=== PATIENT | female | born 1945 | race Native Hawaiian/Other Pacific Islander ===

== ENCOUNTER 2017-03-09 18:24 | Observation (INO) | payer MEDICARE ==
[~2017-03-09] VITALS: Ht 157.5 cm; Wt 63.0 kg
[~2017-03-09 18:24] MED LIST: ASPI81CH CHEW; CALC600T25 PO; CHOL1TAB42 PO; LEVO25TA4 PO; MULTCAP3 PO; ZOLE5P IV
[2017-03-09 18:26] VITALS: BP 163/76; PULSE 107; RESP 18; TEMP 100.8; O2SAT 98
[2017-03-09 19:09] VITALS: BP 138/67; PULSE 92; TEMP 98.1; O2SAT 98
--- NOTE | 2017-03-09 19:28 | PD ---
HPI Chief Complaint: Cold / Flu Symptoms Time Seen by Provider: 19:20 Travel History International Travel<30 days: No Contact w/Intl Traveler<30days: No Traveled to known affect area: No History of Present Illness HPI The patient is a 71 year old female who presents to the [facility] emergency department with a history of urinary incontinence and urinary urgency that began on Wednesday. She denies having any dysuria. She has had similar symptoms in the past related to urinary tract infections. She started on Cipro that was provided by her and has been on the medication for 3 day. She has had fatigue and a fever with a tmax of 101. Today she began to have n/v. She has also had diarrhea 2-3 x per day since starting the ciprofloxacin. Her stool is dark brown and watery without mucus. She denies having any blood in her stool. She reports having body aches. She reports that she's had a cough mainly before she begins to gag and vomit. Otherwise, she denies having any congestion. On review of systems, the patient denies any neck pain, chest pain , shortness of breath, abdominal pain, or neurologic symptoms. PCP: Edwin Zeng. [facility] Past Medical History Narrative Medical The patient's past medical history is significant for hypothyroidism, osteoporosis. Cancer: No Cardiovascular Problems: No Endocrine: Yes Genitourinary: No Immune Disorder: No Musculoskeletal: Yes Neurologic: No Psychiatric: No Reproductive: No Respiratory: No Thyroid Disease: Yes ?: Not Past Surgical History Narrative Surgical The patient's past surgical history is significant for right wrist orif, left wrist orif. Other Surgery: Yes Social History Alcohol Use: No Tobacco Use: No Substance Use: No Allergies-Medications (Allergen,Severity, Reaction): Coded Allergies: No Known Allergies (Unverified , 03/09/17) Reported Meds & Prescriptions Reported Meds & Active Scripts Active Reported Reclast Inj (Zoledronic Acid) 5 Mg/100 Ml Inj 5 Mg IV Q365D Aspirin 81 Mg Chew 81 Mg CHEW DAILY Vitamin D-3 (Cholecalciferol) 2,000 Unit Tab 1 Cap PO EVERY OTHER DAY Calcium (Calcium Carbonate) 600 Mg Tab 1 Tab PO BID Multivitamins (Multiple Vitamin) 1 Cap Cap 1 Tab PO DAILY Levothyroxine (Levothyroxine Sodium) 25 Mcg Tab 25 Mcg PO DAILY Review of Systems Except as stated in HPI: all other systems reviewed are Neg General / Constitutional: Positive: Fever, Chills Eyes: No: Visual changes HENT: No: Headaches, Congestion Cardiovascular: No: Chest Pain or Discomfort Respiratory: Positive: Cough, No: Shortness of Breath Gastrointestinal: No: Abdominal Pain Genitourinary: Positive: Urgency, Frequency, Incontinence, No: Dysuria Musculoskeletal: Positive: Myalgias, Pain Skin: No Rash Neurologic: Positive: Weakness (generalized), No: Focal Abnormalities, Change in Mentation, Slurred Speech, Sensory Disturbance Psychiatric: No: Depression Endocrine: No: Polydipsia Hematologic/Lymphatic: No: Easy Bruising Physical Exam Narrative General: The patient is a well-developed well-nourished female in no acute distress. Head and Neck exam: Head is normocephalic atraumatic. Eyes: EOMI, pupils are equal round and reactive to light. Nose: Midline septum with pink mucous membranes Mouth: Dentition unremarkable. Moist mucus membranes. Posterior oropharynx is not erythematous. No tonsillar hypertrophy. Uvula midline. Airway patent. Neck: No palpable lymphadenopathy. No nuchal rigidity. No thyromegaly. Cardiovascular: Sinus tachycardia in the low 100 without murmurs, gallops, or rubs. No pulse deficit to the extremities and simultaneous auscultation and palpation of her radial artery. Lungs: Clear to auscultation bilaterally. No wheezes, rhonchi, or rales. Abdomen: Soft, without tenderness to palpation in all 4 quadrants of the abdomen. No guarding, rebound, or rigidity. Normal bowel sounds are audible. No tenderness on palpation of McBurney's point. Negative Pisano's sign. Extremities: No clubbing, cyanosis, or edema. 2+ pulses in all 4 extremities. No calf tenderness on palpation. Back: No spinous process tenderness to palpation. No costovertebral angle tenderness to palpation. Neurologic Exam: Grossly nonfocal. Skin Exam: No rash noted. Intact skin that is warm and dry. Data Data Last Documented VS Vital Signs Date Time Temp Pulse Resp B/P (MAP) Pulse Ox O2 Delivery O2 Flow Rate FiO2 03/09/17 21:00 98.1 98 18 132/75 (94) 99 Room Air Orders Orders Electrocardiogram (03/09/17 19:21) Complete Blood Count With Diff (03/09/17 19:21) Comprehensive Metabolic Panel (03/09/17 19:21) Prothrombin Time / Inr (Pt) (03/09/17 19:21) Act Partial Throm Time (Ptt) (03/09/17 19:21) Blood Culture (03/09/17 19:21) C-Reactive Protein (Crp) (03/09/17 19:21) Lipase (03/09/17 19:21) Urinalysis - C+S If Indicated (03/09/17:21) Magnesium (Mg) (03/09/17 19:21) Thyroid Stimulating Hormone (03/09/17 19:21) Chest, Single Ap (03/09/17:21) Iv Access Insert/Monitor (03/09/17:) Ecg Monitoring (03/09/17:) Oximetry (03/09/17:) Lactic Acid Sepsis Protocol (03/09/17 19:21) Acetaminophen (Tylenol) (03/09/17 19:30) Sodium Chlorid 0.9% 500 Ml Inj (Ns 500 M (03/09/17 19:30) Piperacil-Tazo 3.375 Gm Premix (Zosyn 3. (03/09/17 19:30) Vancomycin Inj (Vancomycin Inj) (03/09/17 19:30) Admit Order (Ed Use Only) (03/09/17 21:29) Labs Laboratory Tests Test 03/09/17 20:00 03/09/17 20:10 White Blood Count 8.1 TH/MM3 Red Blood Count 3.77 MIL/MM3 Hemoglobin 11.3 GM/DL Hematocrit 34.1 % Mean Corpuscular Volume 90.4 FL Mean Corpuscular Hemoglobin 29.9 PG Mean Corpuscular Hemoglobin Concent 33.1 % Red Cell Distribution Width 13.3 % Platelet Count 179 TH/MM3 Mean Platelet Volume 7.7 FL Neutrophils (%) (Auto) 88.2 % Lymphocytes (%) (Auto) 2.3 % Monocytes (%) (Auto) 9.0 % Eosinophils (%) (Auto) 0.2 % Basophils (%) (Auto) 0.3 % Neutrophils # (Auto) 7.1 TH/MM3 Lymphocytes # (Auto) 0.2 TH/MM3 Monocytes # (Auto) 0.7 TH/MM3 Eosinophils # (Auto) 0.0 TH/MM3 Basophils # (Auto) 0.0 TH/MM3 CBC Comment DIFF FINAL Differential Comment Prothrombin Time 10.9 SEC Prothromb Time International Ratio 1.0 RATIO Activated Partial Thromboplast Time 33.3 SEC Blood Urea Nitrogen 11 MG/DL Creatinine 0.71 MG/DL Random Glucose 112 MG/DL Total Protein 7.0 GM/DL Albumin 3.2 GM/DL Calcium Level 9.2 MG/DL Magnesium Level 1.8 MG/DL Alkaline Phosphatase 47 U/L Aspartate Amino Transf (AST/SGOT) 28 U/L Alanine Aminotransferase (ALT/SGPT) 24 U/L Total Bilirubin 0.5 MG/DL Sodium Level 136 MEQ/L Potassium Level 4.0 MEQ/L Chloride Level 104 MEQ/L Carbon Dioxide Level 25.4 MEQ/L Anion Gap 7 MEQ/L Estimat Glomerular Filtration Rate 81 ML/MIN Lactic Acid Level 1.1 mmol/L C-Reactive Protein 15.00 MG/DL Lipase 88 U/L Thyroid Stimulating Hormone 3rd Gen 1.980 uIU/ML Urine Color LIGHT-YELLOW Urine Turbidity CLEAR Urine pH 6.0 Urine Specific [place] 1.006 Urine Protein TRACE mg/dL Urine Glucose (UA) NEG mg/dL Urine Ketones NEG mg/dL Urine Occult Blood MOD Urine Nitrite NEG Urine Bilirubin NEG Urine Urobilinogen LESS THAN 2.0 MG/DL Urine Leukocyte Esterase NEG Urine RBC 6 /hpf Urine WBC 1 /hpf Urine Bacteria RARE /hpf Microscopic Urinalysis Comment CULT NOT INDICATED MDM Medical Decision Making Medical Screen Exam Complete: Yes Emergency Medical Condition: Yes Medical Record Reviewed: Yes Interpretation(s) Last Impressions Chest X-Ray 03/09/171920 Signed Impressions: Service Date/Time: Thursday, March 09, 2017 19:50 - CONCLUSION: 1. Cardiomegaly with minimal basilar atelectasis. No effusion. Kam Clay MD Differential Diagnosis Differential diagnosis in this patient includes pyelonephritis, versus viral syndrome, versus pneumonia, versus sepsis of undetermined origin. Narrative Course During the course of the patients emergency department visit, the patients history, examination, and differential diagnosis were reviewed with the patient. The patient had IV access obtained and blood work sent for analysis. The patient was placed on a cardiac cath lab manager with oximetry and blood pressure monitoring. An ECG was done on arrival. The patient's ECG reveals a heart rate of 92 with occasional supraventricular premature complexes, QRS duration is 97 ms, QTC 389 ms, and incomplete right bundle branch block is noted, T waves are inverted in lead 3, V1. No acute ST segment elevation is noted. The patient was initially provided Zosyn and vancomycin as broad-spectrum antibiotic due to a concern for possible sepsis in spite of treatment with ciprofloxacin. The patient was given normal saline a 500 mL bolus times one. Acetaminophen 650 by mouth 1 for fever. The patients laboratory studies were reviewed and remarkable for a white count of 8.1, hemoglobin 11.3, platelets 179 with neutrophils 88.2, leukocytes 2.3, monocytes 9.0, CMP is remarkable for glucose of 112, lactic acid 1.1, C- reactive protein is 15, albumin 3.2, lipase 88, TSH 1.98, PT 10.9, PTT 33.3, urinalysis shows moderate occult blood, 6 RBCs, 1 WBC, rare bacteria. Culture was not indicated, however as she has been on ciprofloxacin I did go ahead and order a urine culture to be sent. Radiology studies were reviewed and remarkable for a chest x-ray that shows cardiomegaly with minimal [place] atelectasis, no effusions. The patients results were discussed with the patient, including the plan of care. I explained that further testing and/ or monitoring is indicated based on the patients history, examination, and/ or laboratory findings. Therefore, I recommended admission for additional evaluation. The patient expressed understanding and was agreeable with this plan. The patient was admitted to the hospital in stable condition and sent to a bed under the care of the [facility]. Sepsis Criteria SIRS Criteria (2 or more): Heart rate over 90 Physician Communication Physician Communication The patient's case was discussed with Drew Yoon. He did agree to admit the patient for further evaluation and treatment at this time. Diagnosis Primary Impression: Febrile illness Additional Impression: Urinary tract infection symptoms Admitting Information Admitting Physician Requests: Observation Ayanna Farias MD Mar 09, 2017 19:28
[2017-03-09] MEDS ORDERED: PIPERACIL-TAZO 3.375 GM PREMIX 50 ML IV ONE (19:30)
[2017-03-09] MEDS ORDERED: ACETAMINOPHEN 325 MG TAB PO ONE (19:30)
[2017-03-09] MEDS ORDERED: VANCOMYCIN INJ 1,000 MG in SODIUM CHLOR 0.9% 250 ML INJ 250 ML IV ONE (19:30)
[2017-03-09] MEDS ORDERED: SODIUM CHLORID 0.9% 500 ML INJ 500 ML IV ONE (19:30)
[2017-03-09 19:57] VITALS: BP 133/64; PULSE 87; RESP 18; O2SAT 100; O2SAT 98
[2017-03-09 20:22] LABS: AUTOMATED NEUTROPHIL # 7.1 TH/MM3 (1.8-7.7); BASOPHIL % 0.3 % (0.0-2.0); EOSINOPHIL % 0.2 % (0.0-4.0); HEMATOCRIT 34.1 % (35.0-46.0); HEMO FLAGS DIFF FINAL; LYMPH % 2.3 % (9.0-44.0); LYMPHOCYTE # 0.2 TH/MM3 (1.0-4.8); MEAN CELL VOLUME 90.4 FL (80.0-100.0); MEAN CORPUSCULAR HEMOGLOBIN 29.9 PG (27.0-34.0); MEAN CORPUSCULAR HGB CONC 33.1 % (32.0-36.0); NEUT % 88.2 % (16.0-70.0); PLATELET COUNT 179 TH/MM3 (150-450); RED BLOOD COUNT 3.77 MIL/MM3 (4.00-5.30); RED CELL DISTRIBUTION WIDTH 13.3 % (11.6-17.2); WHITE BLOOD COUNT 8.1 TH/MM3 (4.0-11.0)
[2017-03-09 20:31] LABS: APTT (PATIENT) 33.3 SEC (24.3-30.1); PROTHROMBIN TIME - PATIENT 10.9 SEC (9.8-11.6)
--- NOTE | 2017-03-09 20:39 | RADRPT ---
EXAM DATE/TIME: 03/09/2017 19:50 [facility] COMPARISON: No previous studies available for comparison. INDICATIONS : Fever. MEDICAL HISTORY : None. SURGICAL HISTORY : None. ENCOUNTER: Initial ACUITY: 1 day PAIN SCORE: 6/10 LOCATION: Bilateral chest FINDINGS: Bibasal atelectasis. No focal consolidation. Elevated right hemidiaphragm. Tortuous aorta. Heart size mildly enlarged. CONCLUSION: 1. Cardiomegaly with minimal basilar atelectasis. No effusion. Kam Clay MD on March 09, 2017 at 20:36 Board Certified Radiologist. This report was verified electronically.
[2017-03-09 20:46] LABS: ALT (GPT) 24 U/L (10-53); ANION GAP 7 MEQ/L (5-15); AST (GOT) 28 U/L (15-37); BICARBONATE 25.4 MEQ/L (21.0-32.0); BLOOD UREA NITROGEN 11 MG/DL (7-18); CHLORIDE 104 MEQ/L (98-107); GLOMERULAR FILTRATION RATE 81 ML/MIN (>89); MAGNESIUM 1.8 MG/DL (1.5-2.5); SODIUM (NA) 136 MEQ/L (136-145)
[2017-03-09 20:46] LABS: BACTERIA, URINE RARE /hpf; BLOOD, URINE MOD (NEG); COMMENT (UR) CULT NOT INDICATED; CULTURE IF INDICATED CULT NOT INDICATED; GLUCOSE,URINE NEG (NEG); KETONE, URINE NEG (NEG); NITRITE,URINE NEG (NEG); URINE COLOR LIGHT-YELLOW (YELLW/STRAW)
[2017-03-09 20:54] LABS: ALKALINE PHOSPHATASE 47 U/L (45-117); TOTAL BILIRUBIN ADULT 0.5 MG/DL (0.2-1.0)
[2017-03-09 21:00] VITALS: BP 132/75; PULSE 98; RESP 18; TEMP 98.1; O2SAT 99
[2017-03-09] MEDS ORDERED: MAGNESIUM HYDROXIDE SUSP 30 ML CUP PO PRN (22:45)
[2017-03-09] MEDS ORDERED: ONDANSETRON HCL 4 MG/2 ML VIAL IVP PRN (22:45)
[2017-03-09] MEDS ORDERED: LACTULOSE SYRUP 20 GM/30 ML CUP PO PRN (22:45)
[2017-03-09] MEDS ORDERED: SODIUM CHLORIDE 0.9% FLUSH 10 ML FLUSH IV FLUSH PRN (22:45)
[2017-03-09] MEDS ORDERED: SENNOSIDES 8.6 MG TAB PO PRN (22:45)
[2017-03-09] MEDS ORDERED: NALOXONE HCL 0.4 MG/ML AMP IV PRN (22:45)
[2017-03-09] MEDS ORDERED: BISACODYL 10 MG SUPP RECTAL PRN (22:45)
[2017-03-09] MEDS ORDERED: ACETAMINOPHEN 325 MG TAB PO PRN (22:45)
[2017-03-09 23:39] VITALS: BP 131/66; RESP 18; TEMP 98.4; O2SAT 99
[2017-03-10] VITALS (7 sets, daily range): BP systolic 121–138; BP diastolic 60–75; PULSE 92–113; RESP 17–20; TEMP 98.1–101.8; O2SAT 92–99
[2017-03-10] MEDS: ENOXAPARIN SODIUM 40 MG/0.4 ML SYRINGE SQ SCH ×2 (00:27→23:54)
[2017-03-10] MEDS: PIPERACIL-TAZO 3.375 GM PREMIX 50 ML IV SCH ×4 (01:59→21:23)
[2017-03-10] MEDS: ACETAMINOPHEN 325 MG TAB PO PRN ×2 (08:24→17:46)
[2017-03-10] MEDS: SODIUM CHLORIDE 0.9% FLUSH 10 ML FLUSH IV FLUSH SCH ×2 (08:25→21:00)
[2017-03-10] MEDS ORDERED: HEPARIN SODIUM - SQ 10,000 UNITS/ML VIAL SQ SCH (09:00)
--- NOTE | 2017-03-10 09:29 | MH ---
cc: TED CARRILLO DATE OF ADMISSION 03/09/2017 CHIEF COMPLAINT Fever and malaise, cold-flu symptoms. TRAVEL IN THE LAST 30 DAYS None HISTORY OF PRESENT ILLNESS This is a pleasant 71 year-old female who presents with an acute onset times four days of flu and cold symptoms. She states that she began running low grade fever, had diarrhea two or three times a day and noted nausea and vomiting. She had decreased appetite and approximately a week before that she had cough and headache. She was initially seen and started on Cipro and has been on the medication for three days, but is not feeling any better. According to the record, she describes her stool as dark brown and watery without mucous. She denies any current headaches. No cough. No congestion. No shortness of breath. No chest pain, just generalized aches and body malaise. She does have a history of constipation and UTI's and initially thought that was what was causing her to feel bad. PAST MEDICAL HISTORY Includes: 1. Osteoporosis 2. Osteoarthritis 3. Thyroid disease which is hypothyroidism 4. History of UTI's. 5. Problems with her left and right wrist. PAST SURGICAL HISTORY Right wrist and left wrist ORIF. ALLERGIES None known. MEDICATIONS 1. A 2. Reclast 3. Aspirin 4. Vitamin D 5. Calcium 6. Multivitamins 7. Levothyroxine SOCIAL HISTORY The patient currently is , lives with her . Denies any use of alcohol, tobacco or illicit drugs. REVIEW OF SYSTEMS A 12-point review was obtained, positives noted are generalized aching, body aches and malaise, fevers, chills, nausea, vomiting and diarrhea onset for four days. Has been taking Cipro for three days. Positive for fatigue. Positive for cough and headache approximately a week ago. History of constipation. Denies any chest pain. No shortness of breath even with increased activity. Other systems negative or unremarkable. PHYSICAL EXAM VITAL SIGNS: Temperature is now 101.3, spiked this morning at 0700, pulse initially was 98, now 113, respirations 20, blood pressure 138/75, O2 sat 95 currently on room air. GENERAL: Well-nourished, well-developed female who looks younger than her stated age resting in the bed. She is obviously having chills. SKIN: [place] mucous membranes, warm and dry to touch. HEAD, EYES, EARS, NOSE, AND THROAT: Atraumatic, normocephalic. Mucous membranes are slightly dry. PERRLA at 2. Tongue and uvula are midline. NECK: Supple. CARDIOVASCULAR: Tachycardia, regular rhythm. No audible rubs or gallops, possibly a soft systolic murmur. She has no edema in her lower extremities. Pulses were intact and warm to touch. LUNGS: Essentially clear anteriorly and posteriorly with no wheezes, rales or rhonchi. ABDOMEN: Soft, nontender and nondistended. Bowel sounds are soft. EXTREMITIES: Moves all extremities with purpose, equal hand commercial glazier, no obvious deformities. NEUROLOGIC: She is awake, alert and answers questions appropriately, a fairly good historian. Tongue is midline. SKIN: Warm and dry to touch without any rashes. DIAGNOSTIC DATA WBC count 8.1, RBC 3.77, hemoglobin 11.3, hematocrit 34.1, neutrophil count is 88.2 with a left shift. Lymphocyte count 2.3. PT-INR is 1. Chemistry, sodium 136, potassium 4, chloride 104, CO2 25.4, amnion gap 7, creatinine 0.71, GFR 81, random glucose 112, lactic acid 1.1. C-reactive protein positive at 15, albumin 3.2, TSH 1.980. Urine is light yellow and clear. The pH is 6, specific gravity 1.006, trace protein, a moderate amount of blood, negative for nitrites, leukocyte esterase, bilirubin, glucose and ketones, rare bacteria. Culture is not indicated. IMAGING STUDIES Show cardiomegaly with minimal basilar atelectasis, but no effusion. ASSESSMENT AND PLAN 1. Febrile illness, unspecified. 2. Possible urinary tract infection. 3. History of urinary incontinence and urinary urgency. 4. Cardiomegaly seen on chest x-ray without symptoms of shortness of breath compensated. 5. Nausea, vomiting and diarrhea with decreased appetite. 6. Anemia mild 7. Tachycardia probably secondary to fever. 8. Positive C-reactive protein. Our plan is to admit initially for observation. We placed the patient on IV Zosyn. She will have a heart health diet, as needed medications for pain, nausea, vomiting and bowel regimen will be monitored. Oxygen to titrate to an O2 sat 92 or greater. A urine culture has been ordered even though it did not trigger. The patient has been on p.o. Cipro for three days. ECG monitoring. She received a dose of Vancomycin and Zosyn in the emergency room and she will be maintained on Zosyn. We will give her heparin for DVT prophylaxis and Protonix for PUD prophylaxis. Monitor her fever. She has had blood cultures which are pending. The course of her treatment will depend on the findings and the symptoms associated with her findings. The patient is full code, full aggressive care and we will follow. Dictated by: Darlene Shafer PA-C Ted Carrillo MD JP/BETTIE /8:32 AM /8:52 AM pt seen and examined this am in ER pod g chart was reviewed in detail dw pt plan of care was moisés curiel rn MAREN
[2017-03-10] MEDS: PANTOPRAZOLE SOD 20 MG DELAYED RELEASE TAB PO SCH (10:47)
[2017-03-10 10:54] LABS: AUTOMATED NEUTROPHIL # 6.8 TH/MM3 (1.8-7.7); BASOPHIL % 0.2 % (0.0-2.0); HEMATOCRIT 32.4 % (35.0-46.0); HEMO FLAGS DIFF FINAL; LYMPH % 2.2 % (9.0-44.0); LYMPHOCYTE # 0.2 TH/MM3 (1.0-4.8); MEAN CELL VOLUME 91.5 FL (80.0-100.0); MEAN CORPUSCULAR HEMOGLOBIN 29.9 PG (27.0-34.0); MEAN CORPUSCULAR HGB CONC 32.7 % (32.0-36.0); MONO % 7.7 % (0.0-8.0); NEUT % 89.9 % (16.0-70.0); PLATELET COUNT 167 TH/MM3 (150-450); RED BLOOD COUNT 3.54 MIL/MM3 (4.00-5.30); RED CELL DISTRIBUTION WIDTH 14.2 % (11.6-17.2); WHITE BLOOD COUNT 7.6 TH/MM3 (4.0-11.0)
[2017-03-10 11:20] LABS: BICARBONATE 25.4 MEQ/L (21.0-32.0); POTASSIUM 3.7 MEQ/L (3.5-5.1)
--- NOTE | 2017-03-10 14:41 | EKG ---
Date Performed: 03/09/2017 Time Performed: 20:16:40 PTAGE: 71 years EKG: Sinus rhythm WITH OCCASIONAL SUPRAVENTRICULAR PREMATURE COMPLEXES POSSIBLE LEFT ATRIAL ENLARGEMENT INCOMPLETE RIG HT BUNDLE BRANCH BLOCK BORDERLINE ECG Compared to prior tracing no significant change PREVIOUS TRACING : 06/24/2014 07.24 DOCTOR: Phil Farias Interpretating Date/Time 03/10/2017 14:35:18
[2017-03-11 01:23] VITALS: BP 118/60; PULSE 98; RESP 19; TEMP 98.3; O2SAT 95
[2017-03-11] MEDS: PIPERACIL-TAZO 3.375 GM PREMIX 50 ML IV SCH ×2 (02:04→08:10)
[2017-03-11 03:52] VITALS: BP 119/62; PULSE 90; RESP 19; TEMP 98.5; O2SAT 96
[2017-03-11] MEDS: PANTOPRAZOLE SOD 20 MG DELAYED RELEASE TAB PO SCH (08:10)
[2017-03-11] MEDS: SODIUM CHLORIDE 0.9% FLUSH 10 ML FLUSH IV FLUSH SCH (08:10)
[2017-03-11 08:25] VITALS: O2SAT 98
[2017-03-11 08:30] VITALS: BP 118/80; PULSE 81; RESP 20; TEMP 98.9; O2SAT 97
--- NOTE | 2017-03-11 09:01 | HHI.PR ---
Subjective Subjective Remarks no fever overnight no cp no sob no pain slept okay anxious to go home Review of Systems Constitutional Constitutional Remarks 12 point ros completed, negative except as noted above Vitals/Results Vital Signs Vital Signs Date Time Temp Pulse Resp B/P (MAP) Pulse Ox O2 Delivery O2 Flow Rate FiO2 03/11/17 08:30 98.9 81 20 118/80 (93) 97 03/11/17 08:25 98 21 03/11/17 03:52 98.5 90 19 119/62 (81) 96 03/11/17 01:23 98.3 98 19 118/60 (79) 95 03/10/17 21:39 95 21 03/10/17 20:37 98.1 99 17 125/70 (88) 95 03/10/17 18:51 22 03/10/17 16:27 101.8 109 18 121/63 (82) 95 03/10/17 11:22 98.8 92 18 129/60 (83) 95 CBC/BMP: 03/10/17 0915 03/10/17 0915 Lab Results Laboratory Tests Test 03/10/17 09:15 White Blood Count 7.6 TH/MM3 Red Blood Count 3.54 MIL/MM3 Hemoglobin 10.6 GM/DL Hematocrit 32.4 % Mean Corpuscular Volume 91.5 FL Mean Corpuscular Hemoglobin 29.9 PG Mean Corpuscular Hemoglobin Concent 32.7 % Red Cell Distribution Width 14.2 % Platelet Count 167 TH/MM3 Mean Platelet Volume 7.7 FL Neutrophils (%) (Auto) 89.9 % Lymphocytes (%) (Auto) 2.2 % Monocytes (%) (Auto) 7.7 % Eosinophils (%) (Auto) 0.0 % Basophils (%) (Auto) 0.2 % Neutrophils # (Auto) 6.8 TH/MM3 Lymphocytes # (Auto) 0.2 TH/MM3 Monocytes # (Auto) 0.6 TH/MM3 Eosinophils # (Auto) 0.0 TH/MM3 Basophils # (Auto) 0.0 TH/MM3 CBC Comment DIFF FINAL Differential Comment Blood Urea Nitrogen 10 MG/DL Creatinine 0.75 MG/DL Random Glucose 99 MG/DL Calcium Level 8.8 MG/DL Sodium Level 139 MEQ/L Potassium Level 3.7 MEQ/L Chloride Level 107 MEQ/L Carbon Dioxide Level 25.4 MEQ/L Anion Gap 7 MEQ/L Estimat Glomerular Filtration Rate 76 ML/MIN Physical Exam General General Appearance: Well Developed, Well Nourished, No Acute Distress, Comfortable Eyes Eye Exam: Pupils Equal, Pupils Reactive Ears & Nose Ears & Nose Exam: Nasal Mucosa [place] Throat Throat Exam: Oral Mucosa [place] & Moist Neck Neck Exam: Neck Supple, Trachea Midline Pulmonary Resp Exam: Clear Bilaterally Cardiology CV Exam: Regular, Good Perfusion Gastrointestinal/Abdomen GI Exam: Soft, Non-Tender, Bowel Sounds Present, Non-Distended Musculoskeletal MS Exam: Joints Intact Integumentary Skin Exam: Warm, Dry Extremeties Extremities Exam: No Edema, Pedal Pulses Palpable Neurologic Neuro Exam: Alert, Awake, Oriented, Speech Clear, Moving All Extremities, No Focal Deficits Psychiatric Psych Exam: Appropriate Responses VTE Prophylaxis VTE Prophylaxis Device: SCDs VTE Prophylaxis Meds: Lovenox PUD Prophylasis PUD Prophylaxis: Protonix Assessment/Plan Assessment/Plan 1. Febrile illness, unspecified. 2. Possible urinary tract infection. 3. History of urinary incontinence and urinary urgency. 4. Cardiomegaly seen on chest x-ray without symptoms of shortness of breath compensated. 5. Nausea, vomiting and diarrhea with decreased appetite. 6. Anemia mild 7. Tachycardia probably secondary to fever. 8. Positive C-reactive protein. Plan Blood cultures negative Urine culture no growth Continue with antibiotics Continue with IV fluids Patient improving, no fever overnight WBC stable, 7.6. Tachycardia, irregular heartbeat Repeat 12-lead EKG Chest x-ray findings with cardiomegaly Patient will benefit from echocardiogram as outpatient Lovenox for DVT prophylaxis Protonix for PUD prophylaxis Improved, no fever Denies any weakness Anxious to go home We'll have patient get out of bed to ambulate Follow-up on EKG report Possible discharge later today f/u PCP diet-heart healthy activity-as tolerated Discussed with RN Discussed with patient and Discussed with Dr. Carrillo This patient was seen by myself and Dr. Carrillo, this note is written on his behalf Luly [place] Mar 11, 2017 09:01
--- NOTE | 2017-03-11 09:43 | HHI.DCPOC ---
Discharge Care Plan Diagnosis: (1) Fever Your Health Problems Are: Difficulty with ADL Goals to Promote Your Health * To prevent worsening of your condition and complications * To maintain your health at the optimal level Directions to Meet Your Goals Take your medications as prescribed Follow your dietary instruction Follow activity as directed Keep your appointments as scheduled Take your immunizations and boosters as scheduled If your symptoms worsen call your PCP, if no PCP go to Urgent Care Center or Emergency Room Smoking is Dangerous to Your Health. Avoid second hand smoke Call the 24-hour hour crisis hotline for domestic abuse at [place] [facility] Mar 11, 2017 09:43
[2017-03-11] MEDS ORDERED: LEVOTHYROXINE SODIUM 25 MCG TAB PO SCH (09:45)
[2017-03-11] MEDS ORDERED: ASPIRIN 81 MG CHEW TAB CHEW SCH (09:45)
[2017-03-11 11:28] VITALS: BP 144/70; PULSE 94; RESP 18; TEMP 100.5; O2SAT 97
[2017-03-11] MEDS ORDERED: CEFU1TAB20 PO (12:26)
[2017-03-11] MEDS ORDERED: CALCIUM CARBONATE 1.25 GM (CA 500 MG) TAB PO SCH (21:00)
--- NOTE | 2017-03-12 12:00 | EKG ---
Date Performed: 03/11/2017 Time Performed: 10:13:05 PTAGE: 71 years EKG: SINUS TACHYCARDIA WITH FREQUENT SUPRAVENTRICULAR PREMATURE COMPLEXES POSSIBLE LEFT ATRIAL E NLARGEMENT BORDERLINE RIGHT AXIS DEVIATION ABNORMAL RHYTHM ECG PREVIOUS TRACING : 03/09/2017 20.16 Compared to previous tracing, PACs are now more frequent. DOCTOR: Moshe Goodman Interpretating Date/Time 03/12/2017 12:00:03
== END 2017-03-11 13:18 | disposition home or self-care (01) ==
LOC: NEPE 18:24 → NEDA 21:30 → NEPGCP 03-10 02:03
PROVIDERS: ADMIT Specialist; ATTEND Specialist
DX: R50.9 Fever, unspecified (principal); R11.2 Nausea with vomiting, unspecified; N39.0 Urinary tract infection, site not specified; D64.9 Anemia, unspecified; E03.9 Hypothyroidism, unspecified; I51.7 Cardiomegaly; I49.1 Atrial premature depolarization; R00.0 Tachycardia, unspecified; R39.15 Urgency of urination; Z79.01 Long term (current) use of anticoagulants
CPT/HCPCS: 71010; 80048; 80053; 81001; 83605; 83690; 83735; 84443; 85025; 85610; 85730; 86140; 87040; 87086; 93005; 96365; 96366; 96367; 96372; 96375; 99285; G0378; J1650; J2405; J2543; J3370; J7040; J7050